=== PATIENT | female | born 1955 | race Caucasian/White ===

== ENCOUNTER 2024-03-21 13:11 | Emergency (ER) | payer MEDICARE, BC ==
[~2024-03-21] VITALS: Ht 162.6 cm; Wt 63.5 kg
[2024-03-21] MEDS ORDERED: ACETAMINOPHEN ES 500 MG TABLET ONE (13:29)
[2024-03-21] MEDS ORDERED: IBUPROFEN 400 MG TABLET ONE (13:30)
[2024-03-21] MEDS: ACETAMINOPHEN ES 500 MG TABLET PO ONE (13:30)
[2024-03-21] MEDS: IBUPROFEN 400 MG TABLET PO ONE (13:30)
[2024-03-21 15:15] VITALS: BP 121/77; TEMP 97.3; O2SAT 99
== END 2024-03-21 15:16 | disposition home or self-care (01) ==
LOC: ER 13:11
DX: S90.32XA Contusion of left foot, initial encounter (principal); E78.5 Hyperlipidemia, unspecified; E03.9 Hypothyroidism, unspecified; Z88.1 Allergy status to other antibiotic agents; X58.XXXA Exposure to other specified factors, initial encounter; Y93.89 Activity, other specified; Y92.89 Other specified places as the place of occurrence of the external cause; Y99.8 Other external cause status
CPT/HCPCS: 73620; A4606; A4663; A9150

== ENCOUNTER 2024-05-26 21:12 | Emergency (ER) | payer MEDICARE, BC ==
[~2024-05-26] VITALS: Ht 162.6 cm; Wt 63.5 kg
[2024-05-26] MEDS ORDERED: TDAP DIPH,PERTUSS,TET VAC/PF 0.5 ML DISP.SYRIN IM ONE (22:50)
[2024-05-26] MEDS: TDAP DIPH,PERTUSS,TET VAC/PF 0.5 ML DISP.SYRIN IM ONE (23:04)
[2024-05-26 23:49] VITALS: BP 125/79; TEMP 98; O2SAT 97
== END 2024-05-26 23:40 | disposition home or self-care (01) ==
LOC: ER 21:30
DX: S61.012A Laceration without foreign body of left thumb without damage to nail, initial encounter (principal); Z60.2 Problems related to living alone; Z88.1 Allergy status to other antibiotic agents; W26.8XXA Contact with other sharp object(s), not elsewhere classified, initial encounter; Y93.G3 Activity, cooking and baking; Y92.89 Other specified places as the place of occurrence of the external cause; Y99.8 Other external cause status
CPT/HCPCS: 90715; A4606; A4663